=== PATIENT | male | born 1940 | race African-American/Black ===

== ENCOUNTER 2021-01-21 06:00 | Day surgery (SDC) | payer MEDICARE ==
[2021-01-20 12:43] LABS: BASOPHILS 0.7 % (0-2); EOSINOPHILS 4.7 % (0-7); HEMATOCRIT 38.6 % (42.0-54.0); HEMOGLOBIN 12.4 g/dL (13.5-17.5); MCH 24.7 pg (26.0-34.0); MCHC 32.1 g/dL (31.0-37.0); MCV 76.9 fL (80.0-100.0); MEAN PLATELET VOLUME 8.4 fL (7.4-10.4); NEUTROPHILS 61.6 % (40-80); PLATELET COUNT 193 10x3/uL (130-400); RBC 5.02 10x6/uL (4.20-6.10); RDW 15.6 % (11.5-14.5); WBC 4.7 10x3/uL (4.8-10.8)
[2021-01-20 12:51] LABS: ANION GAP 9.1 mmol/L (8-16); CARBON DIOXIDE 29.8 mmol/L (21.0-32.0); CREATININE - SERUM 1.1 mg/dL (0.6-1.3); POTASSIUM - SERUM 3.9 mmol/L (3.5-5.1)
[~2021-01-21] VITALS: Ht 182.9 cm; Wt 85.7 kg
[~2021-01-21 06:00] MED LIST: BAYER CHEWABLE81 MG PO; BISOPROLOL-HCT1 EAC3 PO; CARDURA4 MG PO; CLONIDINE HCL0.2 MG PO; COZAAR50 MG PO; DORZOLAMIDE-TI1 EACH EACH EYE; FUROSEMIDE40 MG PO; KLOR-CON M2020 MEQ PO; PROSCAR5 MG PO
[2021-01-21 06:48] VITALS: BP 143/76; Ht 182.9 cm; Wt 85.7 kg
[2021-01-21] MEDS ORDERED: TYLENOL W/CODEI1 TAB PO (09:07)
[2021-01-21] MEDS ORDERED: BACTRIM DS TAB1 EAC1 PO (09:07)
--- NOTE | 2021-01-21 12:58 | NUR ---
PT ATTEMPTED TO URINATE SEVERAL TIMES WITH NO RESULTS. BLADDER SCAN PERFORMED BY LOYD CLAROS AND SHOWED 1 L OF URINE IN BLADDER. NOTIFIED DR JENKINS AND TELEPHONE ORDER RECEIVED FOR I&O CATH AND DISCHARGE PT HOME.
--- NOTE | 2021-01-21 13:00 | NUR ---
I&O CATH PERFORMED BY LOYD BURNHAM. PER TEJ, SHE CLAMPED CATHETER AFTER OBTAINING 1100 ML OF URINE.
--- NOTE | 2021-01-21 13:10 | NUR ---
IN/OUT FOLELY PLACED ORDERED PER DR JENKINS. DRAINED 1100 ML OF YELLOW URINE AND CLAMPED FOR 10 MINUTES
--- NOTE | 2021-01-21 13:30 | NUR ---
IV DC'D WITH CATH TIP INTACT BY LOYD BURNHAM. PT THEN DISCHARGED VIA W/C, ACCOMPANIED BY LOYD BURNHAM, TO POV WITH SPOUSE DRIVING. ALL BELONGINGS WITH PT/SPOUSE.
--- NOTE | 2021-01-21 14:25 | NUR ---
1325 AFTER IN/OUT CATH CLAMPED X 10 MINUTES, RETURNED TO FIND CATH FULL. APPROXIMATELY 2000 ML OF URINE IN CATH. CATHETER REMOVED. PATIENT STATES HE FEELS MUCH BETTER. IV CATH REMOVED WITH CATH INTACT
== END 2021-01-21 13:30 | disposition home or self-care (01) ==
LOC: D.OPS 06:00
PROVIDERS: Anesthesiology; ATTEND Surgery
DX: K40.31 Unilateral inguinal hernia, with obstruction, without gangrene, recurrent (principal); D17.6 Benign lipomatous neoplasm of spermatic cord; N18.9 Chronic kidney disease, unspecified

== ENCOUNTER 2021-01-24 09:51 | Emergency (ER) | payer MEDICARE ==
[~2021-01-24] VITALS: Ht 182.9 cm; Wt 85.9 kg
[~2021-01-24 09:51] MED LIST changes: +BACTRIM DS TAB1 EAC1 PO; +TYLENOL W/CODEI1 TAB PO
[2021-01-24 09:56] VITALS: Ht 182.9 cm; Wt 85.9 kg
[2021-01-24 10:24] LABS: ANION GAP 14.3 mmol/L (8-16); CALCIUM 8.7 mg/dL (8.5-10.1); CARBON DIOXIDE 23.6 mmol/L (21.0-32.0); CREATININE - SERUM 5.9 mg/dL (0.6-1.3); POTASSIUM - SERUM 4.9 mmol/L (3.5-5.1)
[2021-01-24 10:25] LABS: INR 1.41 (0.85-1.17)
[2021-01-24 10:26] LABS: APTT 27.9 SECONDS (22.8-39.4)
[2021-01-24 10:31] LABS: ALBUMIN 3.1 g/dL (3.4-5.0); BILIRUBIN - TOTAL 0.48 mg/dL (0.2-1.3)
[2021-01-24 10:32] LABS: BASOPHILS 0.5 % (0-2); EOSINOPHILS 3.4 % (0-7); HEMATOCRIT 34.7 % (42.0-54.0); HEMOGLOBIN 11.3 g/dL (13.5-17.5); LYMPHOCYTES 8.1 % (15-50); MCH 24.5 pg (26.0-34.0); MCHC 32.6 g/dL (31.0-37.0); MEAN PLATELET VOLUME 8.7 fL (7.4-10.4); MONOCYTES 7.9 % (2-11); NEUTROPHILS 80.1 % (40-80); RBC 4.62 10x6/uL (4.20-6.10); WBC 10.1 10x3/uL (4.8-10.8)
[2021-01-24 10:39] LABS: PLATELET COUNT 150 10x3/uL (130-400)
[2021-01-24 12:24] LABS: BILIRUBIN NEGATIVE (NEGATIVE); KETONE NEGATIVE mg/dL (< 1+); NITRITE NEGATIVE (NEGATIVE); PH 7.5 (5.0-8.0); UROBILINOGEN NORMAL mg/dL (< 2); WHITE CELLS - URINE 25 HPF (0-1)
[2021-01-24 14:34] VITALS: BP 127/76
== END 2021-01-24 14:39 ==
LOC: D.ER 09:51
PROVIDERS: Family Medicine
DX: N17.9 Acute kidney failure, unspecified (principal); K59.00 Constipation, unspecified; T83.098A Other mechanical complication of other urinary catheter, initial encounter; R33.9 Retention of urine, unspecified; I10 Essential (primary) hypertension